=== PATIENT | male | born 1985 | race Caucasian/White ===

== ENCOUNTER 2017-06-21 17:45 | Emergency (ER) | payer SELFPAY ==
[2017-06-21 17:53] VITALS: BP 143/77
[2017-06-21] MEDS ORDERED: KETOROLAC 60 MG/2 ML INJ. IM ONE (18:00)
[2017-06-21] MEDS ORDERED: HYDROcodone/APAP 5/325MG 1 TAB TABLET PO ONE (18:00)
[2017-06-21] MEDS ORDERED: HYDR-971 PO (18:01)
[2017-06-21] MEDS ORDERED: AMOX500C PO (18:01)
--- NOTE | 2017-06-21 18:01 | PHYS DOC ---
Adult General Chief Complaint Chief Complaint: DENTAL PROBLEM HPI HPI Patient is a 31 year old male presents the ED complaining of dental pain 30 minutes. Patient states he was biting into a cheeseburger and felt his tooth cracked off. Describes the pain as sharp. Rates the pain as 10/10. Denies fever , difficulty swallowing, nausea/vomiting, tongue swelling, abscess, headache or dizziness. Review of Systems Review of Systems Constitutional: Denies fever or chills [] Eyes: Denies change in visual acuity, redness, or eye pain [] HENT: Denies nasal congestion or sore throat [] Respiratory: Denies cough or shortness of breath [] Cardiovascular: No additional information not addressed in HPI [] GI: Denies abdominal pain, nausea, vomiting, bloody stools or diarrhea [] : Denies dysuria or hematuria [] Musculoskeletal: Denies back pain or joint pain [] Integument: Denies rash or skin lesions [] Neurologic: Denies headache, focal weakness or sensory changes [] Endocrine: Denies polyuria or polydipsia [] Current Medications Current Medications Current Medications Medications (Trade) Dose Ordered Sig/Nereyda Start Time Stop Time Status Last Admin Dose Admin Acetaminophen/ Hydrocodone Bitart (Lortab 5/325) 1 tab 1X ONCE 06/21/17 18:00 06/21/17 18:01 DC 06/21/17 18:03 1 TAB Ketorolac Tromethamine (Toradol Im) 60 mg 1X ONCE 06/21/17 18:00 06/21/17 18:01 DC 06/21/17 18:03 60 MG Allergies Allergies Allergies Coded Allergies Type Severity Reaction Last Updated Verified No Known Drug Allergies 06/21/17 No Physical Exam Physical Exam Constitutional: Well developed, well nourished, no acute distress, non-toxic appearance. [] HENT: Normocephalic, atraumatic, bilateral external ears normal, oropharynx moist, no oral exudates, nose normal. LEFT LOWER MOLAR TOOTH AVULSION, VO TYPE 2 NO ABSCESS OR FLUCTUANCE. [] Eyes: PERRLA, EOMI, conjunctiva normal, no discharge. [] Neck: Normal range of motion, no tenderness, supple, no stridor. [] Cardiovascular:Heart rate regular rhythm, no murmur [] Lungs & Thorax: Bilateral breath sounds clear to auscultation [] Abdomen: Bowel sounds normal, soft, no tenderness, no masses, no pulsatile masses. [] Skin: Warm, dry, no erythema, no rash. [] Back: No tenderness, no CVA tenderness. [] Extremities: No tenderness, no cyanosis, no clubbing, ROM intact, no edema. [] Neurologic: Alert and oriented X 3, normal motor function, normal sensory function, no focal deficits noted. [] Psychologic: Affect normal, judgement normal, mood normal. [] Current Patient Data Vital Signs Vital Signs Date Time Temp Pulse Resp B/P (MAP) Pulse Ox O2 Delivery O2 Flow Rate FiO2 06/21/17 17:53 97.6 97 20 99 Room Air 97.6 EKG EKG [] Radiology/Procedures Radiology/Procedures [] Course & Med Decision Making Course & Med Decision Making Pertinent Labs and Imaging studies reviewed. (See chart for details) []Patient's pain improved in ED. Discussed follow-up with dentist this week. Patient states he returns to his home around [facility] tomorrow. States [place] is [place] the race. States he will follow up with his dentist when he gets back. Discussed reasons to return to the ED. Patient understands and agrees with plan. Dragon Disclaimer Dragon Disclaimer This electronic medical record was generated, in whole or in part, using a voice recognition dictation system. Departure Departure Impression: Primary Impression: Dental injury Additional Impression: Pain, dental Disposition: HOME, SELF-CARE Condition: IMPROVED Patient Instructions: Dental Fracture, Dental Injury Scripts Amoxicillin (AMOXICILLIN) 500 Mg Capsule 1 CAP PO TID, #30 CAP Prov: MIGUEL UGARTE 06/21/17 Hydrocodone/Apap 5-325 (NORCO 5-325 TABLET) 1 Each Tablet 1 TAB PO TID, #6 TAB Prov: MIGUEL UGARTE 06/21/17 Problem Qualifiers MIGUEL UGARTE Jun 21, 2017 18:01
== END 2017-06-21 18:15 | disposition home or self-care (01) ==
LOC: ER 17:45
DX: S09.93XA Unspecified injury of face, initial encounter (principal); X58.XXXA Exposure to other specified factors, initial encounter; Y93.89 Activity, other specified; Y92.89 Other specified places as the place of occurrence of the external cause; Y99.8 Other external cause status
CPT/HCPCS: 96372; 99283; J1885